=== PATIENT | female | born 1965 | race Caucasian/White ===

== ENCOUNTER 2019-04-08 13:26 | Emergency (ER) | payer SELFPAY ==
[2019-04-08] MEDS ORDERED: HYDROCODONE/APAP 7.5/325 MG TAB ONE (14:09)
--- NOTE | 2019-04-08 14:24 | RAD REPORT ---
EXAM DESCRIPTION: CT - [id number] - 04/08/2019 2:14 pm CLINICAL HISTORY: Trauma, head and neck injury. fall injury COMPARISON: No comparisons TECHNIQUE: Axial 5 mm thick images of the head were obtained. Axial 2 mm thick images of the cervical spine were obtained with sagittal and coronal reconstruction images generated and reviewed. All CT scans are performed using dose optimization technique as appropriate and may include automated exposure control or mA/KV adjustment according to patient size. FINDINGS: CT HEAD WITHOUT CONTRAST: No acute hemorrhage, hydrocephalus or extra-axial collection is identified.No areas of brain edema or midline shift. The paranasal sinuses and mastoids are clear.The calvarium is intact. Left posterior scalp hematoma. CT CERVICAL SPINE WITHOUT CONTRAST: No fracture or subluxation.Mild cervical spondylosis.No prevertebral soft tissues swelling is identif ied. IMPRESSION: No acute intracranial or cervical spine findings.
--- NOTE | 2019-04-08 14:30 | RAD REPORT ---
EXAM DESCRIPTION: RAD - Shoulder Right 2 View - 04/08/2019 2:22 pm CLINICAL HISTORY: fall injury COMPARISON: No comparisons FINDINGS: Mild AC joint and glenohumeral joint arthritic changes are present. No acute fracture or d islocation seen.
--- NOTE | 2019-04-08 15:52 | ER ---
Nurse's Notes [facility] Name: Audrey Ray Age: 53 yrs Sex: Female : 1965 Arrival Date: 04/08/2019 Time: 13:28 Bed 30 Private MD: Diagnosis: Fall (on) (from) unspecified stairs and steps;Contusion of right shoulder;Pain in right shoulder;Contusion of ankle;Unspecified injury of head Presentation: 04/08 14:00 Presenting complaint: Patient states: I fell off the RV steps and hit the back of my la1 head, right shoulder, and right ankle. Pt denies LOC. Transition of care: patient was not received from another setting of care. Onset of symptoms was April 08, 2019. Risk Assessment: Do you want to hurt yourself or someone else? Patient reports no desire to harm self or others. Initial Sepsis Screen: Does the patient meet any 2 criteria? No. Patient's initial sepsis screen is negative. Does the patient have a suspected source of infection? No. Patient's initial sepsis screen is negative. Care prior to arrival: None. 14:00 Method Of Arrival: Ambulatory la1 14:00 Acuity: ALEKSANDER 4 la1 Historical: - Allergies: 14:02 No Known Allergies; la1 - Immunization history:: Adult Immunizations up to date. - Social history:: Smoking status: Patient/guardian denies using tobacco. - Ebola Screening: : No symptoms or risks identified at this time. Screenin:11 Abuse screen: Denies threats or abuse. Denies injuries from another. Nutritional rv screening: No deficits noted. Tuberculosis screening: No symptoms or risk factors identified. Fall Risk None identified. Primary Survey: 16:11 NO uncontrolled hemorrhage observed. Breathing/Chest: Respiratory pattern:. rv Assessment: 15:30 General: Appears in no apparent distress. uncomfortable, Behavior is calm, cooperative. rv 15:30 Pain: Complains of pain in right leg and anterior aspect of right ankle, right rv shoulder. Neuro: Level of Consciousness is awake, alert, obeys commands, Oriented to person, place, time, situation. Cardiovascular: Patient's skin is warm and dry. Respiratory: Airway is patent. GI: No signs and/or symptoms were reported involving the gastrointestinal system. : No signs and/or symptoms were reported regarding the genitourinary system. EENT: No signs and/or symptoms were reported regarding the EENT system. Derm: Skin is intact. Musculoskeletal: Swelling present in anterior aspect of right ankle. Vital Signs: 14:02 BP 145 / 74; Pulse 71; Resp 16; Temp 97.4; Pulse Ox 100% on R/A; la1 16:07 BP 138 / 76; Pulse 74; Resp 15; Pulse Ox 100% ; rv ED Course: 13:28 Patient arrived in ED. as 14:00 Triage completed. la1 14:02 Arm band placed on right wrist. la1 15:30 Patient has correct armband on for positive identification. Placed in gown. Bed in low rv position. Call light in reach. Side rails up X 1. Adult w/ patient. Pulse ox on. NIBP on. 15:35 Latisha Hale FNP-C is PHCP. snw 15:35 John Connors MD is Attending Physician. snw 15:53 Juan C Teran, HORACE is Primary Nurse. rv 16:12 No provider procedures requiring assistance completed. Patient did not have IV access rv during this emergency room visit. 16:12 Johann wrap to right ankle Sling applied to right arm. rv Administered Medications: 14:05 Drug: Maynard (7.5 mg-325 mg) 1 tabs Route: PO; la1 16:12 Follow up: Response: No adverse reaction; Marked relief of symptoms; Pain is decreased; rv RASS: Alert and Calm (0) Outcome: 15:52 Discharge ordered by . snw 16:12 Discharged to home ambulatory, with family. rv 16:12 Condition: good 16:12 Discharge instructions given to patient, Instructed on discharge instructions, follow up and referral plans. medication usage, Demonstrated understanding of instructions, follow-up care, medications, Prescriptions given X 2. 16:12 Patient left the ED. rv Signatures: Latisha Hale FNP-C AIRPORT CONTROL OPERATOR-Marilyn Weiss Lee, RN RN la1 Juan C Teran, HORACE RN rv
--- NOTE | 2019-04-08 15:53 | EDPHYS ---
Physician Documentation [facility] Name: Audrey Ray Age: 53 yrs Sex: Female : 1965 Arrival Date: 04/08/2019 Time: 13:28 Bed 30 Private MD: ED Physician John Connors HPI: 04/08 15:48 This 53 yrs old Female presents to ER via Ambulatory with complaints of Fall snw Injury, Headache, Shoulder Pain. 15:48 Details of fall: The patient fell from a height, down approximately 3 stairs. Onset: snw The symptoms/episode began/occurred suddenly, and became persistent. Associated injuries: The patient sustained injury to the head, right shoulder and right ankle, Severity of symptoms: At their worst the symptoms were moderate, severe. The patient has not experienced similar symptoms in the past. It is unknown whether or not the patient has recently seen a physician. no LOC, declines right ankle x-ray. Historical: - Allergies: 14:02 No Known Allergies; la1 - Immunization history:: Adult Immunizations up to date. - Social history:: Smoking status: Patient/guardian denies using tobacco. - Ebola Screening: : No symptoms or risks identified at this time. ROS: 15:46 Constitutional: Negative for fever, chills, and weight loss, Eyes: Negative for injury, snw pain, redness, and discharge, ENT: Negative for injury, pain, and discharge, Neck: Negative for injury, pain, and swelling, Cardiovascular: Negative for chest pain, palpitations, and edema, Respiratory: Negative for shortness of breath, cough, wheezing, and pleuritic chest pain, Abdomen/GI: Negative for abdominal pain, nausea, vomiting, diarrhea, and constipation, Back: Negative for injury and pain, : Negative for injury, bleeding, discharge, and swelling. 15:46 Skin: Negative for injury, rash, and discoloration. 15:46 MS/extremity: Positive for injury or acute deformity, contusion, swelling, tenderness, of the anterior aspect of right ankle and right shoulder. 15:46 Neuro: Positive for contusion to left posterior occiput. Exam: 15:43 Constitutional: This is a well developed, well nourished patient who is awake, alert, snw and in no acute distress. Head/Face: Normocephalic, atraumatic. Eyes: Pupils equal round and reactive to light, extra-ocular motions intact. Lids and lashes normal. Conjunctiva and sclera are non-icteric and not injected. Cornea within normal limits. Periorbital areas with no swelling, redness, or edema. ENT: Nares patent. No nasal discharge, no septal abnormalities noted. Tympanic membranes are normal and external auditory canals are clear. Oropharynx with no redness, swelling, or masses, exudates, or evidence of obstruction, uvula midline. Mucous membranes moist. Neck: Trachea midline, no thyromegaly or masses palpated, and no cervical lymphadenopathy. Supple, full range of motion without nuchal rigidity, or vertebral point tenderness. No Meningismus. Chest/axilla: Normal chest wall appearance and motion. Nontender with no deformity. No lesions are appreciated. Cardiovascular: Regular rate and rhythm with a normal S1 and S2. No gallops, murmurs, or rubs. Normal PMI, no JVD. No pulse deficits. Respiratory: Lungs have equal breath sounds bilaterally, clear to auscultation and percussion. No rales, rhonchi or wheezes noted. No increased work of breathing, no retractions or nasal flaring. Abdomen/GI: Soft, non-tender, with normal bowel sounds. No distension or tympany. No guarding or rebound. No evidence of tenderness throughout. Back: No spinal tenderness. No costovertebral tenderness. Full range of motion. Skin: Warm, dry with normal turgor. Normal color with no rashes, no lesions, and no evidence of cellulitis. Neuro: Awake and alert, GCS 15, oriented to person, place, time, and situation. Cranial nerves II-XII grossly intact. Motor strength 5/5 in all extremities. Sensory grossly intact. Cerebellar exam normal. Normal gait. Psych: Awake, alert, with orientation to person, place and time. Behavior, mood, and affect are within normal limits. 15:43 Musculoskeletal/extremity: Extremities: grossly normal except: noted in the anterior aspect of right ankle: ecchymosis, swelling, tenderness, ROM: no acute changes, Circulation is intact in all extremities. Sensation intact. right shoulder contusion, full ROM, pulses intact, mild ac separation/arthritic changes on x-ray. Vital Signs: 14:02 BP 145 / 74; Pulse 71; Resp 16; Temp 97.4; Pulse Ox 100% on R/A; la1 16:07 BP 138 / 76; Pulse 74; Resp 15; Pulse Ox 100% ; rv MDM: 15:35 Patient medically screened. snw 15:54 Data reviewed: vital signs, nurses notes. Data interpreted: Pulse oximetry: on room air snw is 100 %. Interpretation: normal. Counseling: I had a detailed discussion with the patient and/or guardian regarding: the historical points, exam findings, and any diagnostic results supporting the discharge/admit diagnosis, radiology results, the need for outpatient follow up, to return to the emergency department if symptoms worsen or persist or if there are any questions or concerns that arise at home. Response to treatment: the patient's symptoms have markedly improved after treatment. Special discussion: Based on the patient's history, exam and DX evaluation, there is no indication for emergent intervention or inpatient TX. It is understood by the patient/guardian that if the SXs persist or worsen they need to return immediately for re-evaluation. Based on the history and exam findings, there is no indication for further emergent testing or inpatient evaluation. I discussed with the patient/guardian the need to see the orthopedic surgeon for further evaluation of the symptoms. I discussed with the patient/guardian the need to see the primary care provider for further evaluation of the symptoms. 04/08 15:08 Order name: CT Head C Spine snw 04/08 15:08 Order name: Ankle Right 3 View XRAY snw 04/08 15:08 Order name: Shoulder Right (2 View) XRAY snw 04/08 15:23 Order name: CT; Complete Time: 15:23 EDMS 04/08 15:23 Order name: RAD; Complete Time: 15:23 EDMS 04/08 15:50 Order name: Sling: right arm; Complete Time: 16:02 snw 04/08 15:50 Order name: Johann Wrap: ankle; Complete Time: 16:02 snw Administered Medications: 14:05 Drug: [place] (7.5 mg-325 mg) 1 tabs Route: PO; la1 16:12 Follow up: Response: No adverse reaction; Marked relief of symptoms; Pain is decreased; rv RASS: Alert and Calm (0) Disposition: 18:44 Co-signature as Attending Physician, John Connors MD. rn Disposition: 04/08/19 15:52 Discharged to Home. Impression: Fall (on) (from) unspecified stairs and steps, Contusion of right shoulder, Pain in right shoulder, Contusion of ankle, Unspecified injury of head. - Condition is Stable. - Discharge Instructions: Joint Pain, Head Injury, Adult, Musculoskeletal Pain, Shoulder Pain, Shoulder Range of Motion Exercises, Shoulder Pain, [id number], Arthritis, [id number], Cryotherapy, Heat Therapy, Surgery for Acromioclavicular Separation, Care After With Rehab-SportsMed. - Prescriptions for Diclofenac Sodium 75 mg Oral Tablet Sustained Release - take 1 tablet by ORAL route 2 times per day; 30 tablet. orphenadrine citrate 100 mg Oral Tablet Sustained Release - take 1 tablet by ORAL route 2 times per day As needed; 20 tablet. - Work release form, Medication Reconciliation Form, Thank You Letter, Antibiotic Education, Prescription Opioid Use form. - Follow up: Private Physician; When: 2 - 3 days; Reason: Recheck today's complaints, Continuance of care, Re-evaluation by your physician. Follow up: Emergency Department; When: As needed; Reason: Worsening of condition. Signatures: Dispatcher [employer] EDMS Latisha Hale, NANOSCIENCE TECHNICIAN-C NANOSCIENCE TECHNICIAN-Csnw John Connors MD MD rn Attema, Lee, RN RN laJuan C Driver RN RN rv Corrections: (The following items were deleted from the chart) 16:12 15:52 04/08/2019 15:52 Discharged to Home. Impression: Fall (on) (from) unspecified rv stairs and steps; Contusion of right shoulder; Pain in right shoulder; Contusion of ankle; Unspecified injury of head. Condition is Stable. Forms are Medication Reconciliation Form, Thank You Letter, Antibiotic Education, Prescription Opioid Use. Follow up: Private Physician; When: 2 - 3 days; Reason: Recheck today's complaints, Continuance of care, Re-evaluation by your physician. Follow up: Emergency Department; When: As needed; Reason: Worsening of condition. snw
[2019-04-08 19:02] VITALS: TEMP 97.4; O2SAT 100
[2019-04-08 19:03] VITALS: BP 138/76
== END 2019-04-08 16:12 | disposition home or self-care (01) ==
LOC: ER 13:26
DX: S09.90XA Unspecified injury of head, initial encounter (principal); S40.011A Contusion of right shoulder, initial encounter; S90.01XA Contusion of right ankle, initial encounter; M25.511 Pain in right shoulder; W10.9XXA Fall (on) (from) unspecified stairs and steps, initial encounter; Y93.89 Activity, other specified; Y92.9 Unspecified place or not applicable
CPT/HCPCS: 70450; 72125; 99284